=== PATIENT | female | born 1960 | race Caucasian/White ===

== ENCOUNTER 2023-08-18 09:00 | Outpatient (CLI) | payer BC, SELFPAY | END 2023-08-18 09:01 | disposition home or self-care (01) | PROVIDERS: PCP Family Medicine; Visit Provider Family Medicine | DX: Z00.00 Encounter for general adult medical examination without abnormal findings (principal); R53.83 Other fatigue; Z13.6 Encounter for screening for cardiovascular disorders | CPT/HCPCS: 80053; 80061; 84443 ==

== ENCOUNTER 2023-08-25 14:24 | Outpatient (CLI) | payer BC, SELFPAY ==
--- NOTE | 2023-08-25 14:40 | CRLHL7_ITS ---
For Patients: As a result of the Century Cures Act, medical imaging exams and procedure reports are released immediately into your electronic medical record. You may view this report before your referring provider. If you have questions, please contact your health care provider. BILATERAL SCREENING MAMMOGRAM WITH COMPUTER-AIDED DETECTION AND TOMOSYNTHESIS TECHNIQUE: CC, MLO and Implant displaced views were obtained. These mammographic images have been obtained using full-field digital technique. These mammographic images were interpreted with the benefit of computer-aided detection. Breast Tomosynthesis was used in this interpretation. COMPARISON FILM: 09/03/19, 09/30/15. FINDINGS: There are scattered areas of fibroglandular density IMPRESSION: There is no radiographic evidence for malignancy. ASSESSMENT: BI-RADS Category 2: Benign RECOMMENDATION: Routine screening mammogram in 1 year. A lay language report of this examination will be provided to the patient. Brandon Morgan M.D. Diagnostic Radiologist [email or web address] RADHA/Dictated by: Brandon Morgan MD @ 08/26/2023 12:38:00 PM (Electronically Signed)
== END 2023-08-25 14:25 | disposition home or self-care (01) ==
PROVIDERS: PCP Family Medicine; Visit Provider Family Medicine
DX: Z12.31 Encounter for screening mammogram for malignant neoplasm of breast (principal)
CPT/HCPCS: 77063; 77067

== ENCOUNTER 2023-11-09 12:38 | Outpatient (CLI) | payer BC, SELFPAY ==
--- NOTE | 2023-11-09 13:00 | CRLHL7_ITS ---
For Patients: As a result of the Century Cures Act, medical imaging exams and procedure reports are released immediately into your electronic medical record. You may view this report before your referring provider. If you have questions, please contact your health care provider. INDICATION: Pulsatile tinnitus. TECHNIQUE: [id number] MRA images of the head. Axial diffusion imaging of the brain. COMPARISON: None. FINDINGS: The internal carotid, middle cerebral, and anterior cerebral arteries are widely patent. The vertebral, basilar, and posterior cerebral arteries are widely patent. No intracranial aneurysm or high-flow vascular malformation. No diffusion restriction to suggest acute infarction. IMPRESSION: 1. Unremarkable MRA of the head. 2. No acute infarction. Dictated by Manolo Melton MD @ 11/09/2023 6:32:03 PM (Electronically Signed)
--- NOTE | 2023-11-09 14:00 | CRLHL7_ITS ---
For Patients: As a result of the Century Cures Act, medical imaging exams and procedure reports are released immediately into your electronic medical record. You may view this report before your referring provider. If you have questions, please contact your health care provider. INDICATION: Pulsatile tinnitus TECHNIQUE: The carotid circulations and the vertebral arteries in the neck were examined with barnett-scale ultrasound, color-flow and Doppler spectral analysis. Degrees of stenosis were determined using SRU 2002 Consensus Panel Criteria. COMPARISON: None. FINDINGS: No carotid plaque or stenosis is demonstrated. Doppler spectral analysis demonstrates peak systolic flow rate of 113 cm/sec in the right internal carotid artery and 115 cm/sec in the left. The ICA-CCA systolic flow ratio on the right is 1.0 and on the left is 0.9. Antegrade vertebral arterial flow is demonstrated bilaterally. IMPRESSION: 1. Negative for carotid artery plaque and hemodynamically significant stenosis by NASCET criteria. 2. Antegrade flow in both vertebral arteries. Dictated by Zackary Carmichael MD @ 11/10/2023 7:04:07 AM (Electronically Signed)
== END 2023-11-09 12:39 | disposition home or self-care (01) ==
LOC: MRI 12:39
PROVIDERS: PCP Family Medicine; Visit Provider Otolaryngology
DX: H93.A9 Pulsatile tinnitus, unspecified ear (principal); R09.89 Other specified symptoms and signs involving the circulatory and respiratory systems
CPT/HCPCS: 70544; 93880